=== PATIENT | male | born 1995 ===

== ENCOUNTER 2025-02-20 11:26 | Emergency (ER) | payer SELFPAY ==
[2025-02-20 11:26] VITALS: BMI 28.8
[2025-02-20 11:38] VITALS: BP 143/81; PULSE 80; RESP 18; TEMP 37.3; O2SAT 98; BMI 28.8
--- NOTE | 2025-02-20 11:42 | PD.EDDENTL ---
ED Dental RME/HPI General Chief complaint: Dental/Oral/Throat Stated complaint: INFECTION IN THROAT Time Seen by Provider: 02/20/25 11:28 Arrival date/time: 02/20/25 11:26 29-year-old male presents emergency department today complains of throat pain ongoing for the last couple of years. Patient reports no fever nausea or vomiting Limitations: no limitations Related Data Previous Rx's ?Medication ?Instructions ?Recorded amoxicillin 875 mg-potassium 1 tab PO BID 10 days #20 tabs 02/20/25 clavulanate 125 mg tablet ibuprofen 600 mg tablet 600 mg PO Q6H #30 tabs 02/20/25 Allergies Allergy/AdvReac Type Severity Reaction Status Date / Time No Known Allergies Allergy Verified 02/20/25 11:28 Review of Systems Review of Systems Systems Reviewed: All systems reviewed, normal except as documented Constitutional Constitutional: Reports system reviewed and no additional complaints, except as documented, Denies fever(s) and Denies headache(s) Eyes Eyes: Reports system reviewed and no additional complaints, except as documented and Denies blurry vision ENT Ears, Nose, Mouth, and Throat: Reports system reviewed and no additional complaints, except as documented, Denies headache(s), Denies nasal congestion, Denies nasal discharge and Reports other (Tonsil stones) Cardiovascular Cardiovascular: Reports system reviewed and no additional complaints, except as documented, Denies chest pain and Denies dyspnea Respiratory Respiratory: Reports system reviewed and no additional complaints, except as documented, Denies chest congestion, Denies cough and Denies dyspnea Gastrointestinal Gastrointestinal: Reports system reviewed and no additional complaints, except as documented and Denies abdominal pain Integumentary/Breasts Skin/Breast: Reports system reviewed and no additional complaints, except as documented and Denies rash Neurologic Neurologic: Reports system reviewed and no additional complaints, except as documented, Reports as per HPI and Denies headache(s) Past Medical History Social History SMOKING STATUS: Current every day smoker ED Exam General Limitations: Present no limitations General appearance: Present alert and in no apparent distress Head Head exam: Present atraumatic, normocephalic and normal inspection Eye Eye exam: Present normal appearance, PERRL and EOMI ENT ENT exam: Present mucous membranes moist and other (Tonsil stone, pharyngitis) Neck Neck exam: Present normal inspection, full ROM and trachea midline Chest Chest inspection: Present normal inspection and symmetric chest wall rise Respiratory Respiratory exam: Present normal lung sounds bilaterally Cardiovascular Cardiovascular exam: Present regular rate, normal rhythm and normal heart sounds Abdominal Exam Abdominal exam: Present soft and normal bowel sounds Extremities Exam Extremities exam: Present normal inspection and full ROM Back Exam Back exam: Present normal inspection and full ROM Neurological Exam Neurological exam: Present alert, oriented X3 and CN II-XII intact Psychiatric Psychiatric exam: Present normal affect and normal mood Skin Skin exam: Present warm, dry, intact and normal color Course Quality Measures none Vital Signs Vital signs: Vital Signs Temperature 99.1 F 02/20/25 11:38 Pulse Rate 80 02/20/25 11:38 Respiratory Rate 18 02/20/25 11:38 Blood Pressure 143/81 H 02/20/25 11:38 Pulse Oximetry (%) 98 02/20/25 11:38 O2 saturation 98% on room air with normal limits Dental / Oral MDM Narrative MDM Narrative:: 29-year-old male presents emergency department today complains of throat pain ongoing for the last couple of years. Patient reports no fever nausea or vomiting On exam patient well-appearing patient does not appear ill or toxic patient does not appear in any acute distress On exam patient appears to have tonsil stones Patient has no trismus no hoarseness of voice Patient be sure the course of antibiotics ibuprofen Patient struck to follow-up PCP in order get a referral to specialist for emergent concerns return immediately Patient data External records reviewed:: [facility] previous records Clinical information provided by:: patient Social determinants that could affect healthcare access:: none Patient has the following chronic illnesses:: None How is presenting disease/condition affected by chronic disease/condition?: no chronic disease Evaluation data The following diagnostics were reviewed and interpreted by me:: other (specify) Lab and/or radiology exams considered but not ordered:: Consider not ordered Interpretation Summary: N/A Medications / Prescriptions Medications or Prescriptions considered but not ordered:: Given Medication administrations:: Given Consultations Consultation(s) initiated? (list below): No Diagnosis Dental Differential Diagnosis: gingival abscess, dental caries and toothache Most likely diagnosis given after review of the tests above:: Tonsil stone Admission Indicated Admission indicated?: not indicated Admission Request Was there a request for admission?: No Disposition Plan Disposition Plan: Discharge Discharge Attestation Discharge Attestation: The patient and all family members were given an opportunity to ask questions and understood the discharge instructions. Discharge instructions specifically effects, indications for sooner follow up or return to the emergency department, and the expected course of current diagnosis. Patient condition: Stable Discharge Plan Plan Patient Disposition: HOME (Self Care) Disposition Comment: Stable Prescriptions/Referrals Prescriptions/Med Rec: New ibuprofen 600 mg tablet 600 mg PO Q6H Qty: 30 0RF amoxicillin-pot clavulanate 875-125 mg tablet 1 tab PO BID 10 Days Qty: 20 0RF Problem List Clinical Impression: Pain in throat, Tonsil stone Patient/Caregiver Discharge Instructions Education Materials: Medicine for Pain Additional Instructions: Please follow up with your primary care doctor in the next 24-48hrs for any worsening symptoms return here immediately Print Language: Chinese Stand Alone Forms: Grace Award Info., Work/School Release, Patient Portal Info Letter SAMEERA/CORBIN Supervising Physician SAMEERA/CORBIN Supervising Physician: Dr Meléndez
== END 2025-02-20 12:43 | disposition home or self-care (01) ==
LOC: SERX 12:24
PROVIDERS: Emergency Provider Emergency Medicine
DX: J35.8 Other chronic diseases of tonsils and adenoids (principal)
CPT/HCPCS: 99281